=== PATIENT | male | born 1990 | race African-American/Black ===

== ENCOUNTER 2018-04-18 00:50 | Emergency (ER) | payer SELFPAY ==
[2018-04-18] MEDS ORDERED: Ibuprofen 200 MG TAB ONE (01:19)
== END 2018-04-18 01:48 | disposition home or self-care (01) ==
LOC: ERS 00:50
DX: R51 Headache (principal); F31.9 Bipolar disorder, unspecified; F17.210 Nicotine dependence, cigarettes, uncomplicated
CPT/HCPCS: 99284